=== PATIENT | male | born 1955 | race Caucasian/White ===

== ENCOUNTER 2017-09-09 22:52 | Inpatient (IN) | END 2017-09-12 20:25 | disposition home health service (06) | DRG 69 ==

== ENCOUNTER 2018-10-07 07:01 | Day surgery (SDC) | payer OTHER ==
[~2018-10-07] VITALS: Ht 170.2 cm; Wt 62.0 kg
[~2018-10-07 07:01] MED LIST: ALBU18HF INH; AMOX500C2 PO; ASPI-831 PO; ATOR20TA65 PO; EPHEDrine SULFATE 50 MG/5 ML SYG ONE; LEVE-5 PO; PROM6.2515 PO; TYL500 PO
[2018-10-07] MEDS ORDERED: ventolin inhaler (08:14)
[2018-10-07] MEDS ORDERED: aspirin (08:14)
[2018-10-07] MEDS ORDERED: atorvastatin (08:14)
[2018-10-07] MEDS ORDERED: levetiracetam (08:14)
[2018-10-07] MEDS ORDERED: pravastatin (08:14)
[2018-10-07] MEDS ORDERED: omeprazole (08:14)
[2018-10-07 08:19] VITALS: BP 133/73; PULSE 75; RESP 18; Ht 170.2 cm; Wt 62.0 kg
--- NOTE | 2018-10-07 08:55 | PREAC ---
Date/Time of Note Date/Time of Note DATE: 10/07/18 TIME: 08:54 Anesthesia Eval and Record Evaluation Time Pre-Procedure Interview DATE: 10/07/18 TIME: 08:54 Age 62 Sex male NPO: 8 hrs Preoperative diagnosis GERD, screening Planned procedure EGD, colonoscopy Past Medical History Past Medical History: Includes Cardio: Dyslipidemia Pulm: Asthma Neuro: CVA, Seizure disorder GI: GERD Surgery & Anesthesia Issues No known issue Meds Anticoagulation: No Beta Michael within 24 hr: No Reason Beta Michael not given: Pt. not on B-Michael Active Scripts Levetiracetam* (Keppra*) 500 Mg Tablet, 500 MG PO BID for 30 Days, #30 TAB 2 Refills Prov:LAUREN NOEL MD 09/11/17 Aspirin (Aspirin) 81 Mg Chew, 81 MG PO DAILY for 1 Day, #1 TAB otc Prov:LAUREN NOEL MD 09/11/17 Atorvastatin Calcium (Atorvastatin Calcium) 20 Mg Tablet, 20 MG PO QHS for 30 Days, #30 TAB 1 Refill Prov:LAUREN NOEL MD 09/11/17 Albuterol Sulfate* (Ventolin HFA*) 18 Gm Hfa.aer.ad, 2 PUFF INH Q6H RESP THERAPY PRN for SHORTNESS OF BREATH for 1 Day, #1 Prov:LAUREN NOEL MD 09/11/17 Reported Medications [ventolin inhaler] No Conflict Check 10/07/18 [pravastatin] No Conflict Check 10/07/18 [omeprazole] No Conflict Check 10/07/18 [levetiracetam] No Conflict Check 10/07/18 [atorvastatin] No Conflict Check 10/07/18 [aspirin] No Conflict Check 10/07/18 Amoxicillin* (Amoxicillin*) 500 Mg Cap, 500 MG PO Q8, #30 CAP 09/09/17 Promethazine Hcl* (Promethazine Hcl* Syrup) 6.25 Mg/5 Ml Syrup, 1 TSP PO Q6H PRN for COUGH, ML 09/09/17 Acetaminophen* (Tylenol*) 500 Mg Tab, 500 MG PO Q6H PRN for MILD PAIN LEVEL 1-3, TAB 09/09/17 Meds reviewed: Yes Allergies Coded Allergies: No Known Drug Allergies (Verified Allergy, Unknown, 09/09/17) Allergies Reviewed: Yes Labs/Studies Labs Reviewed: Reviewed by anesthesiologist test: N/A Pre-procedure Exam Last vitals Vital Signs Date Temp Pulse Resp B/P (MAP) Pulse Ox O2 O2 Flow FiO2 Time Delivery Rate 10/07/18 98.0 75 18 133/73 99 Room Air 08:19 (93) Airway: Adequate mouth opening, Adequate thyromental dist Mallampati: Mallampati II Teeth: Normal Lung: Normal Heart: Normal ASA Physical Status ASA physical status: 3 Emergency: None Planned Anesthetic General/MAC: Mask Planned Pain Management Parenteral pain med Pre-operative Attestations Prior to commencing anesthesia and surgery, the patient was re-evaluated, there was verification of: *The patient's identity *The results of appropriate recent lab work and preoperative vital signs *The above evaluation not changing prior to induction *Anesthetic plan, risk benefits, alternative and complications discussed with patient/family; questions answered; patient/family understands, accepts and wishes to proceed. ARMANDO CHAVEZ MD Oct 07, 2018 08:55
[2018-10-07] MEDS ORDERED: PROPOFOL 40 ML ONE (08:56)
[2018-10-07] MEDS ORDERED: LIDOCAINE 2% (SDV) 5 ML INJ ONE (08:56)
[2018-10-07] MEDS ORDERED: MIDAZOLAM 1 MG/ML 2 ML INJ ONE (08:57)
[2018-10-07] MEDS ORDERED: HYDROmorphONE 1 MG/5 ML IV SYRINGE IV PRN (09:00)
[2018-10-07] MEDS ORDERED: ONDANSETRON 4 MG INJ IV PRN (09:00)
[2018-10-07 09:56] VITALS: BP 118/70; PULSE 90; RESP 16
--- NOTE | 2018-10-07 10:05 | PAC ---
Date/Time of Note Date/Time of Note DATE: 10/07/18 TIME: 09:58 Post-Anesthesia Notes Post-Anesthesia Note Last documented vital signs Vital Signs Date Temp Pulse Resp B/P (MAP) Pulse Ox O2 O2 Flow FiO2 Time Delivery Rate 10/07/18 98.0 75 18 133/73 99 Room Air 08:19 (93) Activity: WNL Respiratory function: WNL Cardiovascular function: WNL Mental status: Baseline Pain reasonably controlled: Yes Hydration appropriate: Yes Nausea/Vomiting absent: Yes Comments BP: 118/75 HR: 90 RR:15 T: 98 SaO2: 100% ARMANDO CHAVEZ MD Oct 07, 2018 10:05
== END 2018-10-07 11:52 | disposition home or self-care (01) ==
LOC: GIL 07:01
PROVIDERS: ATTEND Internal Medicine Gastroenterology
DX: Z12.11 Encounter for screening for malignant neoplasm of colon (principal); K64.1 Second degree hemorrhoids; K20.9 Esophagitis, unspecified; K29.30 Chronic superficial gastritis without bleeding; E78.5 Hyperlipidemia, unspecified; J45.909 Unspecified asthma, uncomplicated; Z86.73 Personal history of transient ischemic attack (TIA), and cerebral infarction without residual deficits; Z79.82 Long term (current) use of aspirin
CPT/HCPCS: 43239; 45378; 88305; 88312; J2250; Z7610